=== PATIENT | male | born 1990 | race Two or more races ===

== ENCOUNTER 2025-04-22 17:37 | Emergency (ER) | payer OTHER ==
[~2025-04-22] VITALS: Ht 177.8 cm; Wt 100.0 kg
[2025-04-22 17:43] VITALS: O2SAT 98
[2025-04-22 17:59] VITALS: BP 151/109; PULSE 91; RESP 14; TEMP 36.7; O2SAT 99
[2025-04-22] MEDS ORDERED: EMTR1TAB20 MT (20:54)
[2025-04-22] MEDS ORDERED: RALT400T MT (20:54)
[2025-04-22 21:24] LABS: PLATELET 187 x1000/uL (130-400); RED BLOOD CELL COUNT 5.34 mill/uL (4.7-6.1); RED CELL DISTRIBUTION WIDTH 13.3 % (11.6-14.6)
[2025-04-22 21:37] LABS: CREATININE 0.9 mg/dL (0.6-1.3); UREA NITROGEN BLOOD 6 mg/dL (9-23)
[2025-04-22 21:38] LABS: PROTEIN TOTAL 7.4 g/dL (6.0-8.3)
[2025-04-22 21:39] LABS: ASPARTATE AMINOTRANSFERASE 20 IU/L (<34); BILIRUBIN DIRECT 0.1 mg/dL (<=3.0); BILIRUBIN TOTAL 0.5 mg/dL (0.1-1.0)
== END 2025-04-22 22:14 | disposition home or self-care (01) ==
LOC: ER 17:37
DX: Z11.3 Encounter for screening for infections with a predominantly sexual mode of transmission (principal); Z79.899 Other long term (current) drug therapy
CPT/HCPCS: 36415; 80048; 80076; 85027; 99283